=== PATIENT | male | born 1935 | race Caucasian/White ===

== ENCOUNTER 2018-03-11 09:00 | Day surgery (SDC) | payer MEDICARE, OTHER ==
[~2018-03-11] VITALS: Ht 162.6 cm; Wt 50.0 kg
[2018-03-11] VITALS (10 sets, daily range): BP systolic 115–156; BP diastolic 60–74
[2018-03-11] MEDS ORDERED: FERR134T2 PO (09:46)
[2018-03-11] MEDS ORDERED: OMEP40CA37 PO (09:47)
[2018-03-11] MEDS ORDERED: LOSA25TA96 PO (09:47)
[2018-03-11] MEDS ORDERED: METO25TA6 PO (09:48)
[2018-03-11] MEDS ORDERED: fentaNYL/PF 50MCG/1 ML 2ML syringe ONE (10:07)
[2018-03-11] MEDS ORDERED: MIDAZolam 5mg/5ml vial ONE (10:07)
[2018-03-11] MEDS ORDERED: diphenhydrAMINE 50 mg/ml inj ONE (10:07)
[2018-03-11] MEDS ORDERED: meperidine/PF 100mg/ml syringe ONE (10:07)
[2018-03-11] MEDS ORDERED: glucagon, human recombinant 1mg kit ONE (10:08)
[2018-03-11] MEDS ORDERED: LIDOcaine Viscous 15ml cup ONE (10:08)
[2018-03-11] MEDS ORDERED: iohexol 300 MG/1 ML 50ml polymer ONE (10:08)
== END 2018-03-11 13:15 | disposition home or self-care (01) ==
LOC: GI LAB 09:00
PROVIDERS: ATTEND Internal Medicine Gastroenterology
DX: Z46.59 Encounter for fitting and adjustment of other gastrointestinal appliance and device (principal); G80.8 Other cerebral palsy; I10 Essential (primary) hypertension; Z79.891 Long term (current) use of opiate analgesic; Z79.2 Long term (current) use of antibiotics; Z87.891 Personal history of nicotine dependence; Z90.49 Acquired absence of other specified parts of digestive tract; Z98.890 Other specified postprocedural states; Z79.899 Other long term (current) drug therapy; Z80.9 Family history of malignant neoplasm, unspecified
CPT/HCPCS: 43260; G0500; J1610; J2250; J3010; J7030; Q9967; A4620; J1200; J2175

== ENCOUNTER 2018-03-13 06:35 | Inpatient (IN) | payer MEDICARE, OTHER ==
[~2018-03-13] VITALS: Ht 162.6 cm; Wt 50.0 kg
[~2018-03-13 06:35] MED LIST: FERR134T2 PO; LOSA25TA96 PO; METO25TA6 PO; OMEP40CA37 PO
[2018-03-13] MEDS ORDERED: ondansetron/PF 4mg/2ml inj IV ONE ×2 (07:00→08:25)
[2018-03-13] MEDS ORDERED: normal saline 1000ML IV soln IVB ONE (07:00)
[2018-03-13 07:05] LABS: CLARITY,URINE CLOUDY (Clear); COLOR,URINE YELLOW (Yellow); GLUCOSE, URINE NEGATIVE (Neg); KETONES,URINE 15 mg/dl (Neg); LEUKOCYTE ESTERASE ,URINE LARGE (Neg); NITRITES, URINE NEGATIVE (Neg); OCCULT BLOOD,URINE SMALL (Neg); PROTEIN,URINE TRACE mg/dl (Neg)
[2018-03-13 07:13] LABS: UA COLLECTION TYPE FOLEY CATH
[2018-03-13 07:14] LABS: AMORPHOUS URATES 3+; BACTERIA,URINE 2+ /HPF (Neg); MUCUS STRANDS NONE SEEN /LPF (Neg); SQUAMOUS EPITHELIAL CELL,UR NONE SEEN /LPF (FEW); WBC,URINE TNTC /HPF (0-4)
[2018-03-13 07:15] LABS: CAL OXALATE CRYSTALS 2+ /HPF (NEGATIVE)
[2018-03-13] MEDS: morphine 4 MG/ML inj SYRINge IV PRN ×3 (07:19→08:17)
[2018-03-13 07:22] LABS: BASOPHILS % (AUTO) 0.1 % (0-1); EOSINOPHILS # (AUTO) 0.1 X10'3 (0-0.9); EOSINOPHILS % (AUTO) 1.2 % (0-6); HEMATOCRIT 30.4 % (42.0-52.0); HEMOGLOBIN 9.8 g/dl (14.0-17.9); LYMPHOCYTES # (AUTO) 1.1 X10'3 (1.1-4.8); LYMPHOCYTES % (AUTO) 11.8 % (21-51); MEAN CORPUSCULAR HEMOGLOBIN 21.8 PG (27.0-31.0); MEAN CORPUSCULAR HGB CONC 32.1 % (33.0-36.5); MEAN CORPUSCULAR VOLUME 67.9 FL (78-98); MEAN PLATELET VOLUME 8.8 FL (7.4-10.4); MONOCYTES # (AUTO) 0.7 X10'3 (0-0.9); MONOCYTES % (AUTO) 7.4 % (2-12); NEUTROPHILS # (AUTO) 7.2 X10'3 (1.8-7.7); NEUTROPHILS % (AUTO) 79.5 % (42-75); PLATELET COUNT 198 X10'3 (140-440); RED BLOOD COUNT 4.48 X10'6 (4.70-6.10); RED CELL DISTRIBUTION WIDTH 26.7 % (11.5-14.5); WHITE BLOOD COUNT 9.1 X10'3 (4.5-11.0)
[2018-03-13 07:31] LABS: PROTHROMBIN TIME 10.7 SECONDS (9.0-12.0)
[2018-03-13 07:38] LABS: ALANINE AMINOTRANSFERASE 18 U/L (12-78); ALBUMIN 2.8 G/DL (3.4-5.0); ALBUMIN/GLOBULIN RATIO 0.8 (1.1-1.5); ALKALINE PHOSPHATASE 92 IU/L (46-116); ANION GAP 10 (8-16); ASPARTATE AMINO TRANSFERASE 14 U/L (10-37); BILIRUBIN,TOTAL 0.4 MG/DL (0.1-1.0); BLOOD UREA NITROGEN 29 MG/DL (7-18); BUN/CREATININE RATIO 37.7 (5.4-32.0); CALCIUM 8.5 MG/DL (8.5-10.1); CHLORIDE 100 MMOL/L (99-107); CREATININE 0.77 MG/DL (0.60-1.10); GLUCOSE 187 MG/DL (70-104); POTASSIUM 3.3 MMOL/L (3.5-5.1); SODIUM 135 MMOL/L (135-145); TOTAL CARBON DIOXIDE 25.1 MMOL/L (24-32); TOTAL PROTEIN 6.5 G/DL (6.4-8.2); eGFR > 90 ML/MIN
[2018-03-13 07:40] LABS: ANISOCYTOSIS 3+; MICROCYTOSIS 2+; PLATELET ESTIMATE NORMAL; POIKILOCYTOSIS 1+
[2018-03-13 07:41] LABS: ELLIPTOCYTES 1+; POLYCHROMASIA FEW; TARGET CELLS FEW
[2018-03-13] MEDS ORDERED: chlorproMAZINE 25mg/ml inj. IV ONE (08:05)
[2018-03-13] MEDS ORDERED: CefTRIAXone 2gm/D5W 50ml 50 ML IV ONE ×2 (08:05→09:50)
[2018-03-13] MEDS ORDERED: morphine 4 MG/ML inj SYRINge IV PRN (08:30)
[2018-03-13 09:10] LABS: LIPASE 155 U/L (73-393)
[2018-03-13] MEDS ORDERED: LIDOcaine 2% 10ml TOPICAL JELLY (Urojet) MM ONE (09:20)
[2018-03-13] MEDS ORDERED: bisacodyl 10mg suppository rectal RC PRN (09:50)
[2018-03-13] MEDS ORDERED: HYDROmorphone inj. 0.5 MG/0.5 ML DISP.SYRIN IV PRN ×2 (09:50)
[2018-03-13] MEDS ORDERED: acetaminophen 650mg rectal suppository RC PRN (09:50)
[2018-03-13] MEDS ORDERED: enalaprilat dihydrate 2.5mg/2ml vial IV ONE (09:50)
[2018-03-13] MEDS ORDERED: HYDROmorphone 1 mg/ml syringe IV PRN ×2 (10:13→10:14)
[2018-03-13] MEDS ORDERED: proCHLORperazine 10 MG/2 ml inj IV ONE (10:40)
[2018-03-13] MEDS: normal saline 1000ml 1,000 ML IV SCH (10:56)
[2018-03-13 11:06] LABS: CLARITY,URINE CLEAR (Clear); COLOR,URINE YELLOW (Yellow); GLUCOSE, URINE 500 mg/dl (Neg); KETONES,URINE NEGATIVE (Neg); LEUKOCYTE ESTERASE ,URINE TRACE (Neg); NITRITES, URINE NEGATIVE (Neg); OCCULT BLOOD,URINE LARGE (Neg); PROTEIN,URINE TRACE mg/dl (Neg); UROBILINOGEN,URINE 0.2 E.U/dL (0.2-1.0)
[2018-03-13] MEDS ORDERED: METO-395 PO (11:15)
[2018-03-13] MEDS ORDERED: FERR325T32 PO (11:15)
[2018-03-13] MEDS ORDERED: OMEP40CA37 PO (11:15)
[2018-03-13] MEDS ORDERED: LOSA50TA37 PO (11:15)
[2018-03-13 11:17] LABS: UA COLLECTION TYPE FOLEY CATH
[2018-03-13 11:18] LABS: RBC,URINE 20-50 /HPF (0-2)
[2018-03-13 11:19] LABS: BACTERIA,URINE FEW /HPF (Neg); MUCUS STRANDS NONE SEEN /LPF (Neg); SQUAMOUS EPITHELIAL CELL,UR FEW /LPF (FEW)
[2018-03-13 13:10] VITALS: BP 152/76
[2018-03-13] MEDS: heparin, porcine 5000 units/ml vial SQ SCH ×2 (16:10→23:25)
[2018-03-13] MEDS ORDERED: magnesium 4gm in 100ml NS 100 ML IV PRN (16:35)
[2018-03-13] MEDS ORDERED: potassium Cl 40MEQ/NS 500ml 500 ML IV PRN (16:35)
[2018-03-13] MEDS ORDERED: magnesium 1gm/100ml D5W IVPB 100 ML IV PRN (16:35)
[2018-03-13] MEDS ORDERED: potassium Cl 20 mEq SR tablet PO PRN ×2 (16:35)
[2018-03-13] MEDS ORDERED: magnesium Cl slow-release 64mg tablet PO PRN (16:35)
[2018-03-13] MEDS: potassium Cl 40MEQ/NS 500ml 500 ML IV PRN (17:15)
[2018-03-13 18:45] VITALS: BP 172/77
[2018-03-13 20:45] VITALS: BP 152/66
[2018-03-14 00:05] VITALS: BP 158/70
[2018-03-14] MEDS: ondansetron/PF 4mg/2ml inj IV PRN ×2 (01:05→22:03)
[2018-03-14 05:06] LABS: BASOPHILS % (AUTO) 0.1 % (0-1); EOSINOPHILS # (AUTO) 0.1 X10'3 (0-0.9); HEMATOCRIT 27.6 % (42.0-52.0); HEMOGLOBIN 8.7 g/dl (14.0-17.9); LYMPHOCYTES # (AUTO) 1.2 X10'3 (1.1-4.8); LYMPHOCYTES % (AUTO) 13.7 % (21-51); MEAN CORPUSCULAR HEMOGLOBIN 21.6 PG (27.0-31.0); MEAN CORPUSCULAR HGB CONC 31.4 % (33.0-36.5); MEAN CORPUSCULAR VOLUME 68.7 FL (78-98); MEAN PLATELET VOLUME 10.1 FL (7.4-10.4); MONOCYTES # (AUTO) 0.7 X10'3 (0-0.9); MONOCYTES % (AUTO) 8.3 % (2-12); NEUTROPHILS # (AUTO) 6.6 X10'3 (1.8-7.7); NEUTROPHILS % (AUTO) 76.9 % (42-75); PLATELET COUNT 211 X10'3 (140-440); RED BLOOD COUNT 4.02 X10'6 (4.70-6.10); RED CELL DISTRIBUTION WIDTH 26.6 % (11.5-14.5); WHITE BLOOD COUNT 8.5 X10'3 (4.5-11.0)
[2018-03-14 05:25] LABS: ALANINE AMINOTRANSFERASE 12 U/L (12-78); ALBUMIN 2.5 G/DL (3.4-5.0); ALBUMIN/GLOBULIN RATIO 0.8 (1.1-1.5); ALKALINE PHOSPHATASE 79 IU/L (46-116); ANION GAP 9 (8-16); ASPARTATE AMINO TRANSFERASE 15 U/L (10-37); BILIRUBIN,TOTAL 0.3 MG/DL (0.1-1.0); BLOOD UREA NITROGEN 14 MG/DL (7-18); BUN/CREATININE RATIO 21.5 (5.4-32.0); CALCIUM 7.8 MG/DL (8.5-10.1); CHLORIDE 106 MMOL/L (99-107); CREATININE 0.65 MG/DL (0.60-1.10); GLUCOSE 124 MG/DL (70-104); LIPASE 73 U/L (73-393); MAGNESIUM 1.8 MG/DL (1.5-2.4); POTASSIUM 3.5 MMOL/L (3.5-5.1); SODIUM 140 MMOL/L (135-145); TOTAL CARBON DIOXIDE 25.1 MMOL/L (24-32); TOTAL PROTEIN 5.7 G/DL (6.4-8.2); eGFR > 90 ML/MIN
[2018-03-14] MEDS: normal saline 1000ml 1,000 ML IV SCH ×2 (05:41→23:53)
[2018-03-14 07:35] LABS: ANISOCYTOSIS 3+; MICROCYTOSIS 2+; PLATELET ESTIMATE NORMAL
[2018-03-14 07:36] LABS: ELLIPTOCYTES 1+; POIKILOCYTOSIS 1+; POLYCHROMASIA 2+
[2018-03-14 08:00] VITALS: BP 187/86
[2018-03-14] MEDS: heparin, porcine 5000 units/ml vial SQ SCH ×3 (08:00→23:53)
[2018-03-14] MEDS: CefTRIAXone/D5W-Rocephin 1gm 50 ML IV SCH (08:00)
[2018-03-14] MEDS: hydrALAZINE 20mg/ml inj. IV PRN ×2 (08:00→19:25)
[2018-03-14 09:15] VITALS: BP 155/74
[2018-03-14] MEDS ORDERED: diatrozoate meglu/diatrozoate sod (37% iodine) 120ML oral solution ONE (10:53)
[2018-03-14 12:00] VITALS: BP 152/76
[2018-03-14 18:30] VITALS: BP 189/79
[2018-03-14] MEDS: lactobacillus rhamnosus 10,000 MMU CELLS/CAPSULE PO SCH (19:13)
[2018-03-14] MEDS: pantoprazole 40 MG vial IV SCH (21:59)
[2018-03-15] VITALS: BP 159/68
[2018-03-15 04:56] LABS: BASOPHILS % (AUTO) 0.3 % (0-1); EOSINOPHILS # (AUTO) 0.1 X10'3 (0-0.9); EOSINOPHILS % (AUTO) 1.7 % (0-6); HEMOGLOBIN 8.5 g/dl (14.0-17.9); LYMPHOCYTES # (AUTO) 1.3 X10'3 (1.1-4.8); LYMPHOCYTES % (AUTO) 15.4 % (21-51); MEAN CORPUSCULAR HEMOGLOBIN 21.5 PG (27.0-31.0); MEAN CORPUSCULAR HGB CONC 31.4 % (33.0-36.5); MEAN CORPUSCULAR VOLUME 68.3 FL (78-98); MEAN PLATELET VOLUME 9.1 FL (7.4-10.4); MONOCYTES # (AUTO) 1.1 X10'3 (0-0.9); MONOCYTES % (AUTO) 13.3 % (2-12); NEUTROPHILS # (AUTO) 5.7 X10'3 (1.8-7.7); NEUTROPHILS % (AUTO) 69.3 % (42-75); PLATELET COUNT 165 X10'3 (140-440); RED BLOOD COUNT 3.95 X10'6 (4.70-6.10); RED CELL DISTRIBUTION WIDTH 27.3 % (11.5-14.5); WHITE BLOOD COUNT 8.2 X10'3 (4.5-11.0)
[2018-03-15 05:25] LABS: ALANINE AMINOTRANSFERASE 11 U/L (12-78); ALBUMIN 2.3 G/DL (3.4-5.0); ALBUMIN/GLOBULIN RATIO 0.8 (1.1-1.5); ALKALINE PHOSPHATASE 74 IU/L (46-116); ANION GAP 7 (8-16); ASPARTATE AMINO TRANSFERASE 11 U/L (10-37); BILIRUBIN,TOTAL 0.3 MG/DL (0.1-1.0); BLOOD UREA NITROGEN 15 MG/DL (7-18); BUN/CREATININE RATIO 23.4 (5.4-32.0); CALCIUM 7.9 MG/DL (8.5-10.1); CHLORIDE 106 MMOL/L (99-107); CREATININE 0.64 MG/DL (0.60-1.10); GLUCOSE 101 MG/DL (70-104); LIPASE 61 U/L (73-393); MAGNESIUM 1.7 MG/DL (1.5-2.4); POTASSIUM 3.2 MMOL/L (3.5-5.1); SODIUM 140 MMOL/L (135-145); TOTAL CARBON DIOXIDE 26.6 MMOL/L (24-32); TOTAL PROTEIN 5.2 G/DL (6.4-8.2); eGFR > 90 ML/MIN
[2018-03-15 07:18] VITALS: BP 138/81
[2018-03-15] MEDS ORDERED: metoclopramide 5 mg/ml inj IV ONE (07:30)
[2018-03-15 07:38] LABS: ANISOCYTOSIS 3+; MICROCYTOSIS 2+; PLATELET ESTIMATE NORMAL
[2018-03-15 07:39] LABS: ACANTHOCYTES FEW; ELLIPTOCYTES 1+; POIKILOCYTOSIS 1+
[2018-03-15] MEDS: pantoprazole 40 MG vial IV SCH ×2 (07:41→19:08)
[2018-03-15] MEDS: lactobacillus rhamnosus 10,000 MMU CELLS/CAPSULE PO SCH ×2 (07:42→19:14)
[2018-03-15] MEDS: CefTRIAXone/D5W-Rocephin 1gm 50 ML IV SCH (07:42)
[2018-03-15] MEDS: heparin, porcine 5000 units/ml vial SQ SCH ×2 (07:42→16:20)
[2018-03-15 11:04] VITALS: BP 153/82
[2018-03-15] MEDS: potassium Cl 40MEQ/NS 500ml 500 ML IV PRN (15:04)
[2018-03-15] MEDS: normal saline 1000ml 1,000 ML IV SCH (16:20)
[2018-03-15 19:39] VITALS: BP 162/79
[2018-03-15 23:57] VITALS: BP 159/72
[2018-03-16] MEDS: heparin, porcine 5000 units/ml vial SQ SCH ×4 (00:36→23:11)
[2018-03-16] MEDS: normal saline 1000ml 1,000 ML IV SCH ×2 (00:37→16:33)
[2018-03-16 05:16] LABS: BASOPHILS % (AUTO) 0.3 % (0-1); EOSINOPHILS # (AUTO) 0.2 X10'3 (0-0.9); EOSINOPHILS % (AUTO) 2.8 % (0-6); HEMATOCRIT 27.2 % (42.0-52.0); HEMOGLOBIN 8.5 g/dl (14.0-17.9); LYMPHOCYTES # (AUTO) 1.4 X10'3 (1.1-4.8); LYMPHOCYTES % (AUTO) 17.5 % (21-51); MEAN CORPUSCULAR HEMOGLOBIN 21.6 PG (27.0-31.0); MEAN CORPUSCULAR HGB CONC 31.3 % (33.0-36.5); MEAN CORPUSCULAR VOLUME 69.2 FL (78-98); MONOCYTES # (AUTO) 0.8 X10'3 (0-0.9); MONOCYTES % (AUTO) 10.9 % (2-12); NEUTROPHILS # (AUTO) 5.3 X10'3 (1.8-7.7); NEUTROPHILS % (AUTO) 68.5 % (42-75); PLATELET COUNT 165 X10'3 (140-440); RED BLOOD COUNT 3.94 X10'6 (4.70-6.10); RED CELL DISTRIBUTION WIDTH 28.3 % (11.5-14.5); WHITE BLOOD COUNT 7.8 X10'3 (4.5-11.0)
[2018-03-16 05:34] LABS: ALANINE AMINOTRANSFERASE 14 U/L (12-78); ALBUMIN 2.3 G/DL (3.4-5.0); ALBUMIN/GLOBULIN RATIO 0.8 (1.1-1.5); ALKALINE PHOSPHATASE 71 IU/L (46-116); ANION GAP 7 (8-16); ASPARTATE AMINO TRANSFERASE 14 U/L (10-37); BILIRUBIN,TOTAL 0.4 MG/DL (0.1-1.0); BLOOD UREA NITROGEN 15 MG/DL (7-18); BUN/CREATININE RATIO 20.5 (5.4-32.0); CALCIUM 7.9 MG/DL (8.5-10.1); CHLORIDE 105 MMOL/L (99-107); CREATININE 0.73 MG/DL (0.60-1.10); GLUCOSE 63 MG/DL (70-104); LIPASE 76 U/L (73-393); MAGNESIUM 1.8 MG/DL (1.5-2.4); POTASSIUM 3.3 MMOL/L (3.5-5.1); SODIUM 137 MMOL/L (135-145); TOTAL CARBON DIOXIDE 24.6 MMOL/L (24-32); TOTAL PROTEIN 5.2 G/DL (6.4-8.2); eGFR > 90 ML/MIN
[2018-03-16 06:52] LABS: ACANTHOCYTES FEW; ANISOCYTOSIS 3+; ELLIPTOCYTES FEW; MICROCYTOSIS 2+; PLATELET ESTIMATE NORMAL
[2018-03-16 07:27] VITALS: BP 155/77
[2018-03-16] MEDS: lactobacillus rhamnosus 10,000 MMU CELLS/CAPSULE PO SCH ×2 (08:00→19:27)
[2018-03-16] MEDS: CefTRIAXone/D5W-Rocephin 1gm 50 ML IV SCH (08:14)
[2018-03-16] MEDS: pantoprazole 40 MG vial IV SCH ×2 (08:14→19:26)
[2018-03-16] MEDS: potassium Cl 40MEQ/NS 500ml 500 ML IV PRN (08:45)
[2018-03-16 11:44] VITALS: BP 169/76
[2018-03-16] MEDS: amox tr/potassium clavulanate 500mg/125mg TAB PO SCH (16:37)
[2018-03-16 18:42] LABS: % IRON SATURATION 6 % (11-46); IRON 15 UG/DL (53-167); TOTAL IRON BINDING CAPACITY 243 UG/DL (259-388)
[2018-03-16 19:03] LABS: FERRITIN 17 NG/ML (26-388)
[2018-03-16 19:35] VITALS: BP 140/69
[2018-03-16] MEDS: ciprofloxacin 250mg tablet PO SCH (21:50)
[2018-03-17] VITALS: BP 123/67
[2018-03-17 05:18] LABS: BASOPHILS % (AUTO) 0.5 % (0-1); EOSINOPHILS # (AUTO) 0.5 X10'3 (0-0.9); HEMATOCRIT 25.1 % (42.0-52.0); LYMPHOCYTES # (AUTO) 1.2 X10'3 (1.1-4.8); LYMPHOCYTES % (AUTO) 19.3 % (21-51); MEAN CORPUSCULAR HGB CONC 31.9 % (33.0-36.5); MEAN CORPUSCULAR VOLUME 69.2 FL (78-98); MONOCYTES # (AUTO) 0.8 X10'3 (0-0.9); MONOCYTES % (AUTO) 12.6 % (2-12); NEUTROPHILS # (AUTO) 3.8 X10'3 (1.8-7.7); NEUTROPHILS % (AUTO) 59.6 % (42-75); PLATELET COUNT 154 X10'3 (140-440); RED BLOOD COUNT 3.63 X10'6 (4.70-6.10); RED CELL DISTRIBUTION WIDTH 27.5 % (11.5-14.5); WHITE BLOOD COUNT 6.3 X10'3 (4.5-11.0)
[2018-03-17 05:32] LABS: ALANINE AMINOTRANSFERASE 12 U/L (12-78); ALBUMIN 2.1 G/DL (3.4-5.0); ALBUMIN/GLOBULIN RATIO 0.8 (1.1-1.5); ALKALINE PHOSPHATASE 70 IU/L (46-116); ANION GAP 6 (8-16); ASPARTATE AMINO TRANSFERASE 14 U/L (10-37); BILIRUBIN,TOTAL 0.4 MG/DL (0.1-1.0); BLOOD UREA NITROGEN 9 MG/DL (7-18); BUN/CREATININE RATIO 14.5 (5.4-32.0); CALCIUM 7.7 MG/DL (8.5-10.1); CHLORIDE 105 MMOL/L (99-107); CREATININE 0.62 MG/DL (0.60-1.10); GLUCOSE 100 MG/DL (70-104); MAGNESIUM 1.8 MG/DL (1.5-2.4); POTASSIUM 3.6 MMOL/L (3.5-5.1); SODIUM 138 MMOL/L (135-145); TOTAL CARBON DIOXIDE 26.7 MMOL/L (24-32); TOTAL PROTEIN 4.9 G/DL (6.4-8.2); eGFR > 90 ML/MIN
[2018-03-17 06:27] LABS: ANISOCYTOSIS 3+; ELLIPTOCYTES 1+; HYPOCHROMASIA 1+; MICROCYTOSIS 2+; PLATELET ESTIMATE NORMAL
[2018-03-17 07:00] VITALS: BP 127/62
[2018-03-17] MEDS ORDERED: pantoprazole 40mg Tablet.DR PO SCH (07:30)
[2018-03-17] MEDS: amox tr/potassium clavulanate 500mg/125mg TAB PO SCH (07:40)
[2018-03-17] MEDS: normal saline 1000ml 1,000 ML IV SCH (07:40)
[2018-03-17] MEDS: lactobacillus rhamnosus 10,000 MMU CELLS/CAPSULE PO SCH (07:41)
[2018-03-17] MEDS: heparin, porcine 5000 units/ml vial SQ SCH (07:42)
[2018-03-17] MEDS: pantoprazole 40 MG vial IV SCH (08:00)
[2018-03-17] MEDS ORDERED: losartan 50mg tablet PO SCH (08:00)
[2018-03-17] MEDS ORDERED: ferrous sulfate 325mg tablet PO SCH (08:00)
[2018-03-17] MEDS ORDERED: metoprolol succinate 25mg (24-HOUR) SR. Tablet PO SCH (08:00)
[2018-03-17] MEDS: ciprofloxacin 250mg tablet PO SCH (10:33)
[2018-03-17] MEDS ORDERED: LACT1CAP26 PO (11:33)
[2018-03-17] MEDS ORDERED: AMOX1TAB15 PO (11:33)
[2018-03-17] MEDS ORDERED: CIPR250T4 PO (11:33)
[2018-03-17] MEDS ORDERED: DOCU-28 PO (11:36)
[2018-03-17 12:00] VITALS: BP 127/62
== END 2018-03-17 16:12 | disposition home health service (06) | DRG 389 ==
LOC: ER 06:36 → ED HOLD 09:47 → EDBEDREQ 12:17 → SUR 3N 13:00
PROVIDERS: ADMIT Family Medicine; ATTEND Family Medicine
DX: K56.609 Unspecified intestinal obstruction, unspecified as to partial versus complete obstruction (principal); N39.0 Urinary tract infection, site not specified; I31.3 Pericardial effusion (noninflammatory); Z68.1 Body mass index [BMI] 19.9 or less, adult; E44.1 Mild protein-calorie malnutrition; D13.6 Benign neoplasm of pancreas; K56.7 Ileus, unspecified; G80.9 Cerebral palsy, unspecified; K44.9 Diaphragmatic hernia without obstruction or gangrene; N28.1 Cyst of kidney, acquired; M85.80 Other specified disorders of bone density and structure, unspecified site; E87.6 Hypokalemia; N31.9 Neuromuscular dysfunction of bladder, unspecified; B96.5 Pseudomonas (aeruginosa) (mallei) (pseudomallei) as the cause of diseases classified elsewhere; B95.2 Enterococcus as the cause of diseases classified elsewhere; D50.9 Iron deficiency anemia, unspecified; M47.816 Spondylosis without myelopathy or radiculopathy, lumbar region; Z90.49 Acquired absence of other specified parts of digestive tract
CPT/HCPCS: 36415; 74176; 80053; 81001; 82728; 83540; 83550; 83690; 83735; 84145; 85025; 85610; 87070; 87077; 87088; 87186; 96361; 96365; 96375; 96376; 99285; A4315; A6213; A6222; A6255; A6258; C9113; J0360; J0696; J0780; J1170; J1644; J2270; J2405; J2765; J3230; J3480; J7030; Q9963

== ENCOUNTER 2018-03-25 07:33 | Emergency (ER) | payer MEDICARE, OTHER ==
[~2018-03-25] VITALS: Ht 162.6 cm; Wt 50.0 kg
[~2018-03-25 07:33] MED LIST changes: +AMOX1TAB15 PO; +CIPR250T4 PO; +DOCU-28 PO; -FERR134T2 PO; +FERR325T32 PO; +LACT1CAP26 PO; -LOSA25TA96 PO; +LOSA50TA37 PO; +METO-395 PO; -METO25TA6 PO
[2018-03-25] MEDS ORDERED: morphine 4 MG/ML inj SYRINge IV ONE ×2 (09:00→10:35)
[2018-03-25] MEDS ORDERED: ondansetron/PF 4mg/2ml inj IV ONE (09:00)
[2018-03-25] MEDS ORDERED: normal saline 1000ml 1,000 ML IV ONE (09:05)
[2018-03-25 09:36] LABS: BASOPHILS % (AUTO) 0.1 % (0-1); EOSINOPHILS # (AUTO) 0.3 X10'3 (0-0.9); EOSINOPHILS % (AUTO) 5.4 % (0-6); HEMATOCRIT 31.1 % (42.0-52.0); HEMOGLOBIN 9.8 g/dl (14.0-17.9); LYMPHOCYTES % (AUTO) 15.9 % (21-51); MEAN CORPUSCULAR HEMOGLOBIN 22.1 PG (27.0-31.0); MEAN CORPUSCULAR HGB CONC 31.6 % (33.0-36.5); MONOCYTES # (AUTO) 0.4 X10'3 (0-0.9); MONOCYTES % (AUTO) 6.6 % (2-12); NEUTROPHILS # (AUTO) 4.5 X10'3 (1.8-7.7); PLATELET COUNT 203 X10'3 (140-440); RED BLOOD COUNT 4.45 X10'6 (4.70-6.10); RED CELL DISTRIBUTION WIDTH 26.3 % (11.5-14.5); WHITE BLOOD COUNT 6.2 X10'3 (4.5-11.0)
[2018-03-25 09:50] LABS: ALANINE AMINOTRANSFERASE 22 U/L (12-78); ALBUMIN 2.8 G/DL (3.4-5.0); ALBUMIN/GLOBULIN RATIO 0.7 (1.1-1.5); ALKALINE PHOSPHATASE 80 IU/L (46-116); ANION GAP 3 (8-16); ASPARTATE AMINO TRANSFERASE 22 U/L (10-37); BILIRUBIN,TOTAL 0.3 MG/DL (0.1-1.0); BLOOD UREA NITROGEN 16 MG/DL (7-18); BUN/CREATININE RATIO 20.3 (5.4-32.0); CALCIUM 8.5 MG/DL (8.5-10.1); CHLORIDE 106 MMOL/L (99-107); CREATININE 0.79 MG/DL (0.60-1.10); GLUCOSE 106 MG/DL (70-104); POTASSIUM 4.2 MMOL/L (3.5-5.1); SODIUM 139 MMOL/L (135-145); TOTAL CARBON DIOXIDE 29.6 MMOL/L (24-32); TOTAL PROTEIN 6.6 G/DL (6.4-8.2); eGFR > 90 ML/MIN
[2018-03-25 09:51] LABS: CLARITY,URINE SLIGHTLY CLOUDY (Clear); COLOR,URINE STRAW (Yellow); GLUCOSE, URINE NEGATIVE (Neg); KETONES,URINE NEGATIVE (Neg); LEUKOCYTE ESTERASE ,URINE SMALL (Neg); NITRITES, URINE NEGATIVE (Neg); OCCULT BLOOD,URINE TRACE-INTACT (Neg); PH,URINE 6.5 (4.8-8.0); PROTEIN,URINE NEGATIVE (Neg); UROBILINOGEN,URINE 0.2 E.U/dL (0.2-1.0)
[2018-03-25 09:52] LABS: UA COLLECTION TYPE FOLEY CATH
[2018-03-25 09:53] LABS: LIPASE 148 U/L (73-393); TROPONIN I < 0.04 NG/ML (0.0-0.05)
[2018-03-25 10:10] LABS: SQUAMOUS EPITHELIAL CELL,UR FEW /LPF (FEW)
[2018-03-25 10:11] LABS: BACTERIA,URINE 1+ /HPF (Neg); RBC,URINE 0-2 /HPF (0-2); WBC,URINE 0-4 /HPF (0-4)
[2018-03-25] MEDS ORDERED: proMETHazine 25mg tablet PO ONE (10:35)
[2018-03-25] MEDS ORDERED: SIME125C77 PO (11:59)
[2018-03-25] MEDS ORDERED: POLY17PO10 PO (11:59)
[2018-03-25] MEDS ORDERED: bisacodyl 5mg tablet.DR PO ONE (12:00)
[2018-03-25 12:46] VITALS: BP 162/92
== END 2018-03-25 12:47 | disposition home or self-care (01) ==
LOC: ER 07:33
DX: G89.18 Other acute postprocedural pain (principal); R10.32 Left lower quadrant pain; K44.9 Diaphragmatic hernia without obstruction or gangrene; K40.20 Bilateral inguinal hernia, without obstruction or gangrene, not specified as recurrent; J90 Pleural effusion, not elsewhere classified; N32.3 Diverticulum of bladder; N28.1 Cyst of kidney, acquired; Z90.49 Acquired absence of other specified parts of digestive tract; Z98.890 Other specified postprocedural states; Z79.2 Long term (current) use of antibiotics; Z79.899 Other long term (current) drug therapy
CPT/HCPCS: 36415; 71045; 74176; 76700; 80053; 81001; 83690; 84484; 85025; 87088; 93005; 96374; 96375; 96376; 99285; J2270; J2405; Q0169; 87077; 87186